=== PATIENT | male | born 1960 | race Caucasian/White ===

== ENCOUNTER 2017-03-02 20:37 | Emergency (ER) | payer OTHER ==
[2017-03-02 21:10] VITALS: BP 143/95; PULSE 74; TEMP 98.6; BMI 32.1
--- NOTE | 2017-03-02 22:17 | PDOC ---
History of Present Illness - General Chief Complaint: Pain Stated Complaint: ABD PAIN Time Seen by Provider: 03/02/17 21:41 History Source: Patient Exam Limitations: No Limitations - History of Present Illness Travel History: No Initial Comments: 03/02/17 22:13 56-year-old male with complaints of intermittent upper abdominal pain he states today felt worse and was not going away after 15 minutes which he states normally his the duration of his discomfort. Patient describes the pain as a burning pain. Patient denies chest pain, shortness of breath, abdominal distention, masses to the abdomen change in bowel pattern or change in weight. Patient states has not told his primary care physician of the above since symptoms are very irregular and intermittent. Timing/Duration: reports: resolved prior to arrival Quality: reports: moderate, burning Abdominal Pain Onset Location: reports: epigastric, periumbilical Pain Radiation: reports: no radiation Activities at Onset: reports: none Aggravating Factors: improves with: None Alleviating Factors: improves with: None Past History - Travel Traveled outside of the country in the last 30 days: No Close contact w/someone who was outside of country & ill: No - Past Medical History Allergies/Adverse Reactions: Allergies Allergy/AdvReac Type Severity Reaction Status Date / Time No Known Drug Allergies Allergy Verified 07/05/15 17:42 Home Medications: Ambulatory Orders Amlodipine/Valsartan [Exforge 10-160 mg Tablet] 1 tab PO DAILY 07/05/15 Amlodipine/Valsartan [Exforge 5-160 mg Tablet] 1 tab PO DAILY #30 tab 07/05/15 HTN: Yes - Immunization History Immunization Up to Date: Yes - Suicide/Smoking/Psychosocial Hx Smoking History: Never smoked Have you smoked in the past 12 months: No If you are a former smoker, when did you quit?: 1996 Information on smoking cessation initiated: No Hx Alcohol Use: No Drug/Substance Use Hx: No Substance Use Type: None Patient Lives Alone: No Lives with/in: spouse/SO Review of Systems - Review of Systems Able to Perform ROS?: No Constitutional: No: Symptoms Reported Respiratory: No: Symptoms reported ABD/GI: Yes: Indigestion, Abdominal cramping : No: Symptoms Reported Musculoskeletal: No: Symptoms Reported Integumentary: No: Symptoms Reported Neurological: No: Symptoms reported *Physical Exam - Vital Signs Last Vital Signs Temp Pulse Resp BP Pulse Ox 98.6 F 74 19 143/95 99 03/02/17 20:57 03/02/17 20:57 03/02/17 20:57 03/02/17 20:57 03/02/17 20:57 - Physical Exam General Appearance: Yes: Nourished, Appropriately Dressed. No: Apparent Distress Gastrointestinal/Abdominal: positive: Normal Bowel Sounds, Soft, Tenderness ( epigastric). negative: Distended, Guarding, Rebound, Hernia, Mass Integumentary: positive: Normal Color, Warm, Moist Neurologic: positive: Motor Strength 5/5 Medical Decision Making - Medical Decision Making 03/02/17 22:15 Patient complains of intermittent epigastric pain. Patient on exam had mild reproducible epigastric pain with no palpable masses or reproducible protrusions. Patient with either GERD, gastritis or a small nonemergent hernia. Patient recommended to follow-up with his primary care physician Dr. Frias tomorrow *DC/Admit/Observation/Transfer Diagnosis at time of Disposition: Epigastric pain - Discharge Dispostion Disposition: HOME Condition at time of disposition: Good - Referrals Referrals: Chato Frias MD [Primary Care Provider] - - Patient Instructions Printed Discharge Instructions: DI for Gastritis Additional Instructions: At this point I do recommend taking Pepcid or Zantac and if no relief consider following up with your primary care physician discussed the possible small hernia that may require imaging.
== END 2017-03-02 22:20 | disposition home or self-care (01) ==
LOC: JER 20:37
DX: R10.13 Epigastric pain (principal); I10 Essential (primary) hypertension
CPT/HCPCS: 99281-25

== ENCOUNTER 2021-07-19 19:31 | Emergency (ER) | payer OTHER ==
[2021-07-19 20:00] VITALS: BP 168/80; PULSE 80; BMI 34.8
[2021-07-19] MEDS ORDERED: KETOROLAC TROMETHAMINE 15 MG/ML VIAL IM ONE (20:40)
[2021-07-19] MEDS ORDERED: KETOROLAC TROMETHAMINE 15 MG/ML VIAL ONE (20:59)
== END 2021-07-19 23:35 | disposition home or self-care (01) ==
LOC: JERFT 19:31 → JER 19:31 → JERFT 23:35
PROC: 3E0333Z Introduction of Anti-inflammatory into Peripheral Vein, Percutaneous Approach (ICD-10-PCS; principal; 2021-07-19)
DX: M54.50 Low back pain, unspecified (principal)
CPT/HCPCS: 72131-TC; 99284-25